=== PATIENT | male | born 1985 | race Caucasian/White ===

== ENCOUNTER 2017-10-15 16:19 | Emergency (ER) | payer OTHER ==
[~2017-10-15] VITALS: Ht 177.8 cm; Wt 75.0 kg
[2017-10-15 16:22] VITALS: BP 143/78; PULSE 67; RESP 16; TEMP 98.1; O2SAT 99
--- NOTE | 2017-10-15 16:33 | PD ---
HPI Chief Complaint: Laceration/Skin Injury Time Seen by Provider: 16:27 Travel History International Travel<30 days: No Contact w/Intl Traveler<30days: No Traveled to known affect area: No History of Present Illness HPI 32-year-old male presents to the emergency department for evaluation of a laceration to his right lateral calf that occurred just prior to arrival. He states he was walking by a glass table and it cut him as he walked by. Patient states his tetanus immunization is up-to-date, within 5 years. He denies any other injury. Current pain is 4/10 without radiation, aching and throbbing. No exacerbating or alleviating factors. Moderate severity. [facility] Social History Alcohol Use: Yes Tobacco Use: No Substance Use: No Allergies-Medications (Allergen,Severity, Reaction): Coded Allergies: No Known Allergies (Unverified , 10/15/17) Review of Systems Except as stated in HPI: all other systems reviewed are Neg Physical Exam Narrative GENERAL: Well-nourished, well-developed male patient, ambulatory. Afebrile. SKIN: Focused skin assessment warm/dry. Patient has a 4 cm superficial laceration to the right lateral calf, bleeding controlled. I am Able to visualize the base of the wound. HEAD: Normocephalic. Atraumatic EYES: No scleral icterus. No injection or drainage. NECK: Supple, trachea midline. No JVD or lymphadenopathy. CARDIOVASCULAR: Right pedal pulse 2+. RESPIRATORY: No accessory muscle use. MUSCULOSKELETAL: No cyanosis, or edema. Data Data Last Documented VS Vital Signs Date Time Temp Pulse Resp B/P (MAP) Pulse Ox O2 Delivery O2 Flow Rate FiO2 10/15/17 16:22 98.1 67 16 143/78 (99) 99 MDM Medical Decision Making Medical Screen Exam Complete: Yes Emergency Medical Condition: Yes Medical Record Reviewed: Yes Differential Diagnosis Laceration versus abrasion versus contusion Narrative Course 32-year-old male presents to the emergency department for evaluation of laceration to his right lower leg that occurred today. Patient gives verbal consent for laceration repair. Laceration is repaired with evan. He is instructed on proper wound care. The patient was discharged in stable condition with instructions, including return instructions and follow up instructions. Procedures Procedure Narrative LACERATION LOCATION: Right lateral leg LENGTH: 5 cm NUMBER OF STITCHES/EVAN: 6 evan REPAIR: The area of the laceration was prepped with Betadine and sterilely draped. The laceration was infiltrated with 1% lidocaine with epinephrine. The wound was copiously irrigated and explored without evidence of foreign body, tendon injury or neurovascular injury. The wound was closed using evan. This was a single layer repair. A sterile dressing was applied. The patient was advised to keep the dressing clean and dry. Patient tolerated the procedure well. Diagnosis Primary Impression: Laceration of right lower leg Qualified Codes: S81.811A - Laceration without foreign body, right lower leg, initial encounter Referrals: Primary Care Physician call for appointment Patient Instructions: General Instructions, Laceration (ED), Staple Care (ED) Additional Instructions: Tylenol/ibuprofen [id number] as needed for pain. Clean twice daily with soap and water and apply [id number] antibiotic ointment. Keep covered if year anywhere he can get dirty. If you are at home and no chance of getting dirty, leave open to air. No swimming or hot tubs until healed. Staple removal in 10-14 days. Return to the emergency department for any acute worsening of symptoms. Med/Other Pt SpecificInfo: No Change to Meds Disposition: 01 DISCHARGE HOME Condition: Stable Dorinda Werner Oct 15, 2017 16:33
== END 2017-10-15 17:01 | disposition home or self-care (01) ==
LOC: PHEFT 16:19
DX: S81.811A Laceration without foreign body, right lower leg, initial encounter (principal); W25.XXXA Contact with sharp glass, initial encounter; Y93.01 Activity, walking, marching and hiking
CPT/HCPCS: 12002